=== PATIENT | male | born 1950 | race African-American/Black ===

== ENCOUNTER 2017-07-13 06:54 | Inpatient (IN) | payer MEDICARE ==
[2017-07-13] MEDS ORDERED: Dexmedetomidine 200 MCG/2 ML VIAL ONE (08:11)
[2017-07-13] MEDS ORDERED: Midazolam HCl 5 mg/5 ml Vial ONE (08:11)
[2017-07-13] MEDS ORDERED: Norepinephrine 8 MG/0.9% NS 250 ML ONE (08:11)
[2017-07-13] MEDS ORDERED: Fentanyl 250 MCG/5 ML VIAL ONE (08:11)
[2017-07-13] MEDS ORDERED: Midazolam HCl 2 mg/2 ml Vial ONE ×3 (08:11→11:38)
[2017-07-13] MEDS ORDERED: Heparin 10,000 UNITS/1 ML VIAL 30,000 UNITS in Sodium Chloride 0.9% 1,000 ML FS SCH (08:45)
[2017-07-13] MEDS ORDERED: Milrinone 10 MG/10 ML VIAL ONE (08:46)
[2017-07-13 08:47] LABS: #Basophils 0.1 thou/uL (0.0-0.2); #Eosinphils 0.3 thou/uL (0.0-0.7); #Lymphocytes 2.2 thou/uL (1.20-3.40); #Monocytes 0.4 thou/uL (0.11-0.59); #Neutrophils 2.3 thou/uL (1.40-6.50); %Basophils 1.2 % (0.0-1.0); %Eosinophils 5.5 % (0.0-10.0); %Monocytes 7.7 % (0.0-10.0); Hematocrit 46.7 % (42.0-52.0); Red Blood Cell (RBC) Count 5.94 mill/uL (4.70-6.10); White Blood Cell (WBC) Count 5.3 thou/uL (4.8-10.8)
[2017-07-13 09:05] LABS: Anion Gap 15 mmol/L (10-20); BUN (Urea Nitrogen) 14 mg/dL (8.4-25.7); Calc. Creatinine Clearance 124 mL/min (70-130); Carbon Dioxide 20 mmol/L (23-31); Chloride 107 mmol/L (98-107); Estimated GFR-MDRD Greater than 90
--- NOTE | 2017-07-13 09:08 | RAD ---
PA AND LATERAL CHEST: Indication: Pre-operative. Comparison: None. FINDINGS: The lungs are clear. Cardiomediastinal silhouette is within normal limits. There are changes involvin g the mid thoracic spine. No acute osseous abnormalities evident. IMPRESSION: No acute cardiopulmonary process. POS: [facility]
[2017-07-13] MEDS ORDERED: CEFAZOLIN/Water 2 GM/20 ML SYRINGE ONE (09:14)
[2017-07-13] MEDS ORDERED: Propofol 200 MG/20 ML VIAL ONE (09:48)
[2017-07-13] MEDS ORDERED: Lidocaine 2% MPF 10 ML AMP (For Epidural Use) ONE (09:48)
[2017-07-13] MEDS ORDERED: Vecuronium 10 MG VIAL ONE (09:48)
[2017-07-13] MEDS ORDERED: Fentanyl 100 MCG/2 ML VIAL ONE (11:38)
[2017-07-13] MEDS ORDERED: PHENYLEPHRINE-NS 100 MCG/ML 10 ML SYRINGE ONE (11:38)
[2017-07-13] MEDS ORDERED: FLU VACC TS2017-18 (>65YR) 0.5 ML SYRINGE IM ONE (12:15)
[2017-07-13] MEDS ORDERED: hydrALAZINE 20 MG/ML VIAL SLOW IVP PRN (13:37)
[2017-07-13] MEDS ORDERED: Guaifenesin DM 100-10/5 ML UDCUP PO PRN (13:37)
[2017-07-13] MEDS ORDERED: DOPamine 400 MG/D5W 250 ML 250 ML IVPB PRN (13:37)
[2017-07-13] MEDS ORDERED: Phenylephrine 10 MG/NS 250 ML 250 ML IVPB PRN (13:37)
[2017-07-13] MEDS ORDERED: Fentanyl 100 MCG/2 ML VIAL SLOW IVP PRN (13:37)
[2017-07-13] MEDS ORDERED: Ondansetron HCl/PF 4 MG/2 ML Vial IVP PRN (13:37)
[2017-07-13] MEDS ORDERED: HYDROcodone/Acetaminophen 5/325 mg Tablet PO PRN (13:37)
[2017-07-13] MEDS ORDERED: Norepinephrine 8 MG/0.9% NS 250 ML IVPB PRN (13:37)
[2017-07-13] MEDS ORDERED: Post-Op Insulin Drip Protocol IVPB ONE (13:37)
[2017-07-13] MEDS ORDERED: Morphine 4 MG/ML Carpuject SLOW IVP PRN (13:37)
[2017-07-13] MEDS ORDERED: Potassium Chloride 20 MEQ/100 ML PREMIX BAG IVPB PRN (13:37)
[2017-07-13] MEDS ORDERED: Mag-Al 1200 mg/1200 mg/30 ML UDCUP PO PRN (13:37)
[2017-07-13] MEDS ORDERED: niCARdipine HCl 25 MG in Sodium Chloride 0.9% 250 ML 240 ML IVPB PRN (13:37)
[2017-07-13] MEDS ORDERED: Bisacodyl 5 MG TAB PO PRN (13:37)
[2017-07-13] MEDS ORDERED: Bisacodyl 10 MG SUPP PR PRN (13:37)
[2017-07-13] MEDS ORDERED: Promethazine HCl 25 MG/ML VIAL IM PRN (13:37)
[2017-07-13] MEDS ORDERED: Acetaminophen 325 MG TAB PO PRN (13:37)
[2017-07-13] MEDS ORDERED: Nitroglycerin 50 MG/250 ML BOT 250 ML IVPB PRN (13:37)
[2017-07-13] MEDS ORDERED: Dextrose 50% Abboject 50 ML SYRINGE SLOW IVP PRN (13:47)
[2017-07-13] MEDS ORDERED: Dextrose 5% in Water 1,000 ML IV PRN (13:47)
[2017-07-13 14:05] LABS: #Basophils 0.1 thou/uL (0.0-0.2); #Eosinphils 0.2 thou/uL (0.0-0.7); #Lymphocytes 2.3 thou/uL (1.20-3.40); #Monocytes 0.8 thou/uL (0.11-0.59); #Neutrophils 12.7 thou/uL (1.40-6.50); %Basophils 0.3 % (0.0-1.0); %Eosinophils 1.4 % (0.0-10.0); %Lymphocytes 14.4 % (21.0-51.0); %Monocytes 4.9 % (0.0-10.0); Hematocrit 40.4 % (42.0-52.0); Mean Platelet Volume 10.8 fL (7.4-10.4); Red Blood Cell (RBC) Count 5.11 mill/uL (4.70-6.10); White Blood Cell (WBC) Count 16.1 thou/uL (4.8-10.8)
[2017-07-13 14:14] LABS: Prothrombin Time 16.9 SEC (12.0-14.7)
[2017-07-13 14:18] LABS: Oxyhemoglobin 95.1 % (94.0-97.0); Sodium 140 mmol/L (135-148)
[2017-07-13 14:19] LABS: Mechanical Tidal Volume 600 ml; Mode SIMV.PSV; Modified Allen's Test NOT DONE; Pressure Support 10 cmH2O; Vent YES
[2017-07-13 14:32] LABS: Anion Gap 14 mmol/L (10-20); BUN (Urea Nitrogen) 12 mg/dL (8.4-25.7); Calc. Creatinine Clearance 134 mL/min (70-130); Carbon Dioxide 20 mmol/L (23-31); Chloride 109 mmol/L (98-107); Estimated GFR-MDRD Greater than 90
[2017-07-13] MEDS: Insulin Regular 300 UNITS/3 ML VIAL SC PRN ×3 (14:42→21:52)
[2017-07-13] MEDS: Sodium Chloride 0.9% 1,000 ML IV SCH (14:48)
--- NOTE | 2017-07-13 15:51 | OP ---
DATE OF PROCEDURE: 07/13/2017 PREOPERATIVE DIAGNOSIS: Left main coronary artery disease with severe reduction in left ventricular function. POSTOPERATIVE DIAGNOSIS: Left main coronary artery disease with severe reduction in left ventricular function. SURGEON: Shubham Saunders M.D. BUSINESS MGR: Babar Thomas M.D. SPONGE AND NEEDLE COUNTS: Correct. ANESTHESIA: General. OPERATION PERFORMED: Coronary artery bypass grafting x3 with left internal mammary artery to LAD, reversed greater saphenous vein to diagonal, and reversed greater saphenous vein to OM. FINDINGS AT OPERATION: Cardiomegaly with no obvious LV scarring. At the sites of distal anastomosis the LAD was 2 mm, the diagonal 1.5-1.75 mm, and the OM 2 mm. Left internal mammary artery and utilized greater saphenous vein were good conduits. DESCRIPTION OF OPERATION: The patient was taken to the operating room. Following the induction of general endotracheal anesthesia, the patient was prepped and draped in the usual sterile fashion. Intraoperative KEN at this time demonstrated an ejection fraction of 20%. Sternotomy was performed. Left internal mammary artery was dissected in extrapleural fashion. Simultaneously, the left thigh greater saphenous vein was harvested using the endoscopic technique. Heparin dose was given and following assurance of an adequate ACT, the patient was cannulated in standard fashion. Cardiopulmonary bypass was instituted. Locations of distal anastomosis were marked. Padded cross-clamp was applied with a single application and a single dose of cold blood cardioplegia given antegrade. The first vein graft was anastomosed in end-to- side fashion to the OM using a continuous 7-0 Prolene suture. In similar fashion, the second vein graft was established to the diagonal. Left internal mammary artery was anastomosed in end-to-side fashion to the LAD using a continuous 7-0 Prolene suture. Mammary artery pedicle was tacked to the epicardium using 6-0 Prolene sutures. Systemic rewarming had been begun. With the head down and gentle suction on the aortic vent, the aortic cross-clamp was removed. Cardioversion was not required. Partial clamp was placed on the ascending aorta with a single application and the 2 proximal vein graft anastomoses performed to punch holes using continuous 6-0 Prolene sutures. Partial clamp was removed and vein grafts deaired. Following a Primacor load, the patient was weaned from cardiopulmonary bypass without difficulty and following heparin reversal with Protamine, the patient was decannulated. Amicar had been used in standard fashion through the case. No intraoperative blood products were required. Pericardium was not closed. Edward drains were positioned within the pericardial well and left pleural cavity. Sternum was reapproximated with interrupted #7 stainless steel wires. Linea alba and fascia were closed with running #1 Vicryl sutures followed by closure of the subcutaneous tissues with a running 2-0 Vicryl suture. Skin was closed with a 3 -0 Vicryl subcuticular stitch. Prior to closure, vancomycin paste had been applied to the sternal halves. Platelet-enriched and platelet-poor plasma had also been applied to the sternal wound. The patient was taken to the ICU. GLORIA
--- NOTE | 2017-07-13 16:16 | RAD ---
EXAM: CHEST ONE VIEW 07/13/17 HISTORY: Recent open heart surgery. COMPARISON: 07/13/17 at 9:16 a.m. FINDINGS: Portable supine chest demonstrates endotracheal tube at the level of the clavicles. Right sided centr al venous catheter terminates over the region of the right atrium. Left sided chest tube and a medias tinal venous catheter identified. Sternotomy wires are also noted. Heart is enlarged. Lung volumes ar e diminished. Interstitial and alveolar opacities due to edema or infiltrate are suspected. Pneumotho rax is not appreciated. IMPRESSION: Findings compatible with recent open heart surgery. POS: [facility]
[2017-07-13] MEDS: CEFAZOLIN/Water 2 GM/20 ML SYRINGE SLOW IVP SCH (16:35)
[2017-07-13 17:29] LABS: Oxyhemoglobin 96.2 % (94.0-97.0); Sodium 140 mmol/L (135-148)
[2017-07-13 17:30] LABS: Modified Allen's Test NOT DONE; Pressure Support 5 cmH2O; Vent YES
[2017-07-13 17:31] LABS: Mode PSV
[2017-07-13] MEDS: Ketorolac Tromethamine 30 MG/ML VIAL IVP SCH ×2 (17:32→23:56)
[2017-07-13] MEDS: Fentanyl 100 MCG/2 ML VIAL SLOW IVP PRN (19:47)
[2017-07-13 19:56] LABS: Hematocrit 42.7 % (42.0-52.0)
--- NOTE | 2017-07-13 20:42 | CON ---
DATE OF SERVICE: 07/13/2017 TYPE OF CONSULTATION: Cardiology Consultation. REASON FOR CONSULTATION: Status post bypass. HISTORY OF PRESENT ILLNESS: Mr. Mendoza is a pleasant 67-year-old -[place] gentleman well k nown to myself, who comes to the hospital for planned bypass grafting. He was seen originally in my office on 05/12/2017 at which point he was complaining of shortness of breath. The stress test and echo were done that showed reduced LV function with ischemia, so heart catheterization was performe d that showed severe left main disease. He underwent coronary artery bypass grafting x3 earlier to[place] by Dr. Saunders. He had a SPARROW to the LAD, a vein to the diagonal and a vein to an OM. He did wel l. On my evaluation, he has been extubated. He is doing well. His EF preoperatively on KEN was ab out 20-25%. His only complaint is just soreness. PAST MEDICAL HISTORY: 1. Ischemic cardiomyopathy as above. 2. Hypertension. 3. Hyperlipidemia. FAMILY HISTORY: Maternal grandfather of heart disease. Maternal grandmother of heart dis ease as well. SOCIAL HISTORY: Single with children, never a smoker. No alcohol or drugs. OUTPATIENT MEDICATIONS: Include: 1. Aspirin 81 daily. 2. Coreg 3.125 mg b.i.d. 3. Lisinopril 10 mg a day. 4. Sublingual nitro p.r.n. 5. Lipitor 40 mg p.o. daily. REVIEW OF SYSTEMS: A 12-point review of systems was done and is all negative unless stated in the h istory of present illness. PHYSICAL EXAMINATION: VITAL SIGNS: Temperature 98.1, pulse 70, respiration rate 18, satting 97% on 2 liters, blood pressu re 101/52. GENERAL: Awake, alert and oriented x3, in no distress. HEENT: Normocephalic, atraumatic. NECK: Supple. LUNGS: Have mild crackles. CARDIOVASCULAR: S1, S2. There is a 2 component rub consistent with recent bypass history. ABDOMEN: Soft, positive bowel sounds. EXTREMITIES: Trace edema. SKIN: Warm and dry. LABORATORY WORK: Reviewed. White count of 5, hemoglobin 14 down to 12.8 after surgery, platelet co unt of 175. Coags were reviewed. ABGs were reviewed. Chemistries were reviewed. BUN of 12, creat inine 0.81, calcium of 8. Chest x-ray after surgery showed compatible recent open heart surgery, no major changes. ASSESSMENT: 1. Ischemic cardiomyopathy. 2. Left main coronary artery disease. 3. Status post coronary bypass grafting x3 as above. 4. Hypertension. 5. Hyperlipidemia. PLAN: 1. Continue postoperative care. 2. Continue supportive care for now. 3. Aspirin and statin for life. 4. We will restart beta chavo and KATELYN inhibitor as blood pressure allows in the next few days. 5. When he is discharged, he will require continuation of his LifeVest use. Thank you for letting us to participate in the care of your patient. We will follow.
[2017-07-13] MEDS: Famotidine/PF 20 mg/2ml Vial SLOW IVP SCH (21:52)
[2017-07-14] MEDS: CEFAZOLIN/Water 2 GM/20 ML SYRINGE SLOW IVP SCH ×2 (00:32→09:08)
[2017-07-14 00:46] VITALS: BMI 32.3
[2017-07-14] MEDS: Fentanyl 100 MCG/2 ML VIAL SLOW IVP PRN (02:53)
[2017-07-14 04:42] LABS: #Lymphocytes 1.8 thou/uL (1.20-3.40); #Monocytes 0.9 thou/uL (0.11-0.59); #Neutrophils 10.4 thou/uL (1.40-6.50); %Basophils 0.2 % (0.0-1.0); %Eosinophils 0.1 % (0.0-10.0); %Lymphocytes 13.6 % (21.0-51.0); %Monocytes 7.2 % (0.0-10.0); Mean Platelet Volume 10.7 fL (7.4-10.4); Red Blood Cell (RBC) Count 5.04 mill/uL (4.70-6.10); White Blood Cell (WBC) Count 13.1 thou/uL (4.8-10.8)
[2017-07-14 04:52] LABS: Anion Gap 12 mmol/L (10-20); BUN (Urea Nitrogen) 16 mg/dL (8.4-25.7); Calc. Creatinine Clearance 132 mL/min (70-130); Calcium 8.3 mg/dL (7.8-10.44); Carbon Dioxide 22 mmol/L (23-31); Chloride 107 mmol/L (98-107); Estimated GFR-MDRD Greater than 90
[2017-07-14] MEDS: Ketorolac Tromethamine 30 MG/ML VIAL IVP SCH ×4 (06:31→23:08)
[2017-07-14] MEDS: HYDROcodone/Acetaminophen 5/325 mg Tablet PO PRN ×4 (07:43→23:12)
[2017-07-14] MEDS: Atorvastatin Calcium 20 MG TAB PO SCH (07:46)
[2017-07-14] MEDS: Famotidine/PF 20 mg/2ml Vial SLOW IVP SCH (07:47)
--- NOTE | 2017-07-14 08:15 | RAD ---
PORTABLE AP CHEST: Date: 07-14-17 History: Post open heart surgery. FINDINGS: Left subclavian central venous catheter is noted in place with tip overlying the right atrium. Media stinal drain and left sided thoracotomy tube are noted in place. There is volume loss at each lung b ase. Cardiac silhouette is magnified by projection but does appear mildly enlarged. Pulmonary vascul ature is within normal limits. Post-surgical change related to CABG are noted. Osseous structures ar e intact. IMPRESSION: 1. Post-surgical changes related to CABG. Lines and tubes are in place as described above. No pneumo thorax is seen. 2. Bibasilar atelectasis. POS: [facility]
[2017-07-14] MEDS ORDERED: Aspirin 325 MG TAB PO SCH (09:00)
[2017-07-14] MEDS: Allopurinol 300 MG TAB PO SCH (09:07)
[2017-07-14 12:51] LABS: Oxyhemoglobin 97.8 % (94.0-97.0); Sodium 140 mmol/L (135-148)
[2017-07-14 12:52] LABS: Oxyhemoglobin 97.7 % (94.0-97.0); Sodium 139 mmol/L (135-148)
[2017-07-14 12:52] LABS: Oxyhemoglobin 97.7 % (94.0-97.0); Sodium 138 mmol/L (135-148)
[2017-07-14 12:53] LABS: Oxyhemoglobin 97.8 % (94.0-97.0); Sodium 137 mmol/L (135-148)
[2017-07-14 12:53] LABS: Base Excess -1.9 mEq/L (0 (+/- 2.5)); O2 Content (venous) 9.3 VOL% (12.5-17.5); pH (venous) 7.333 (7.35-7.45)
[2017-07-14 13:17] LABS: Mode OR ABG; Vent YES
[2017-07-14 13:17] LABS: Mode OR ABG; Vent YES
[2017-07-14 13:18] LABS: Mode OR ABG; Vent YES
[2017-07-14 13:18] LABS: Vent YES
[2017-07-14 13:19] LABS: Mode OR ABG
[2017-07-14] MEDS ORDERED: Furosemide 40 MG/4 ML VIAL SLOW IVP SCH (14:00)
--- NOTE | 2017-07-14 14:29 | CON ---
DATE OF CONSULTATION: 07/14/2017 SERVICE: Pulmonary Medicine. REASON FOR CONSULTATION: Rather ICU patient. HISTORY OF PRESENT ILLNESS: The patient is a 67-year-old -[place] male with past medical hi story significant for hypertension and ischemic cardiomyopathy. He presented for an elective alexander ry bypass graft from the outpatient setting. He was in his usual state of health, going into the [facility]. He has no underlying respiratory issues. He denies any current fevers, chills, nausea, vomi ting, diarrhea or chest discomfort. He extubated comfortably yesterday without any significant issu es. Otherwise, he is returning to his usual state of health. His pain is under decent control, but he is splinting a little bit, not taking full breath with respirations. PAST MEDICAL HISTORY: 1. Coronary artery disease. 2. Chronic systolic heart failure. 3. Hypertension. 4. Dyslipidemia. PAST SURGICAL HISTORY: Coronary artery bypass graft. SOCIAL HISTORY: He is a lifelong nonsmoker. He denies any alcohol or illicit drug use. No exposur e to chemicals, dust asbestos or tuberculosis. FAMILY HISTORY: Heart disease runs in primary family members. ALLERGIES: No known drug allergies. MEDICATIONS: List of his inpatient medications were reviewed. No specific updates were made at thi s time. PHYSICAL EXAMINATION: VITAL SIGNS: Afebrile, pulse 82, blood pressure 110/63, respirations 18, saturation 100% on 2 liter s nasal cannula. LUNGS: Excellent air entry with no prolonged expiratory phase, wheezing, rhonchi or crackles. CARDIOVASCULAR: Normal rate, regular. ABDOMEN: Soft, nontender, nondistended, bowel sounds positive. MUSCULOSKELETAL: No cyanosis or clubbing. No pitting in the bilateral lower extremities. NEUROLOGIC: Grossly nonfocal. LABORATORY DATA: WBC 13.1, hemoglobin 12.7, platelets 158,000. INR 1.3, pH 7.37, pCO2 of 33, pO2 1 11 on 40% FIO2. Basic metabolic profile is essentially unremarkable. Blood sugars ranged 103-141. IMAGING: Chest x-ray demonstrated post-surgical changes associated with coronary bypass graft. Bib asilar atelectasis is present. ASSESSMENT: 1. Coronary artery disease, status post coronary artery bypass graft, postoperative day #1. 2. Hypertension. 3. Dyslipidemia. 4. Coronary artery disease. 5. Chronic systolic heart failure with 30% ejection fraction. PLAN: We will continue her postop supportive care. I will continue to follow along while the radha slater remains in this location.
[2017-07-14] MEDS ORDERED: Bisacodyl 10 MG SUPP PR PRN (16:33)
[2017-07-14] MEDS ORDERED: Bisacodyl 5 MG TAB PO PRN (16:33)
[2017-07-14] MEDS ORDERED: Guaifenesin DM 100-10/5 ML UDCUP PO PRN (16:33)
[2017-07-14] MEDS ORDERED: Mag-Al 1200 mg/1200 mg/30 ML UDCUP PO PRN (16:33)
[2017-07-14] MEDS ORDERED: Artificial Tears 18 DROP/0.9 ML EA EYE PRN (16:33)
[2017-07-14] MEDS ORDERED: Zolpidem Tartrate 5 MG TAB PO PRN (16:33)
[2017-07-14] MEDS ORDERED: Nitroglycerin 0.4 MG TAB (25 Tab Bottle) SL PRN (16:33)
[2017-07-14] MEDS ORDERED: Promethazine HCl 25 MG/ML VIAL IM PRN (16:33)
[2017-07-14] MEDS ORDERED: Fentanyl 100 MCG/2 ML VIAL SLOW IVP PRN ×2 (16:33)
[2017-07-14] MEDS ORDERED: Milk Of Magnesia 30 ML UDCUP PO PRN (16:33)
[2017-07-14] MEDS ORDERED: Ondansetron HCl/PF 4 MG/2 ML Vial IVP PRN (16:33)
[2017-07-14] MEDS ORDERED: diphenhydrAMINE 25 MG CAP PO PRN (16:33)
[2017-07-14] MEDS ORDERED: Acetaminophen 325 MG TAB PO PRN (16:33)
[2017-07-14] MEDS ORDERED: Mineral Oil ENEMA PR PRN (16:33)
[2017-07-14] MEDS: Carvedilol 3.125 MG TAB PO SCH (17:54)
--- NOTE | 2017-07-14 18:11 | PDOC.CTH ---
Cardiology Progress Note - Subjective He is doing better. Less sore. No other issues. - Objective Vital Signs Temp Pulse Resp Pulse Ox 07/14/17 16:00 98.0 F 95 07/14/17 14:39 99 07/14/17 12:00 97.9 F 97 07/14/17 08:00 99.5 F 07/14/17 07:45 99.5 F 80 18 98 Weight 244 lb 7.882 oz 07/13/17 07/14/17 07/15/17 06:59 06:59 06:59 Intake Total 1371 795 Output Total 1345 1125 Balance 26 -330 - Physical Examination General/Neuro: alert & oriented x3, NAD Neck: no JVD present Lungs: unlabored respirations Heart: RRR Abdomen: NT/ND Extremities: + edema B (1+) - Telemetry Telemetry Rhythm: NSR - Labs Result Diagrams: 07/14/17 04:10 07/14/17 04:10 - Assessment/Plan 1. Severe LM disease. 2. S/P CABG 3. Severe ischemic CM EF at 30-35% 4. HTN. 5. HLP. PLAN: - Continue post op care. - Aspirin and statin for life. - Agree with starting coreg. - Start ACEI low dose tomorrow if BP allows.
[2017-07-14] MEDS: Sodium Chloride 0.9% 1,000 ML IV SCH (19:45)
[2017-07-14] MEDS: Famotidine 20 MG TAB PO SCH (20:32)
[2017-07-15] MEDS: Ketorolac Tromethamine 30 MG/ML VIAL IVP SCH ×4 (05:24→23:58)
[2017-07-15] MEDS: Potassium Chloride 20 MEQ TAB PO SCH (08:44)
[2017-07-15] MEDS: Carvedilol 3.125 MG TAB PO SCH ×2 (08:44→20:04)
[2017-07-15] MEDS: Furosemide 40 MG TAB PO SCH (08:45)
[2017-07-15] MEDS: Aspirin 325 mg Enteric Coated Tablet PO SCH (08:45)
[2017-07-15] MEDS: Atorvastatin Calcium 20 MG TAB PO SCH (08:45)
[2017-07-15] MEDS: Famotidine 20 MG TAB PO SCH ×2 (08:45→20:04)
[2017-07-15] MEDS: Allopurinol 300 MG TAB PO SCH (09:09)
[2017-07-15] MEDS: HYDROcodone/Acetaminophen 5/325 mg Tablet PO PRN ×2 (11:21→17:25)
--- NOTE | 2017-07-15 15:12 | PDOC.CTH ---
Cardiology Progress Note - Subjective He is doing better. He has been walking around the halls and feeling well. he had a BM earlier today. - Objective Vital Signs Temp Pulse Pulse Pulse Resp BP BP 07/15/17 11:43 98.5 F 95 16 07/15/17 11:14 98.5 F 95 16 07/15/17 09:26 92 95 139/67 144/67 H 07/15/17 08:00 99 F 97 16 07/15/17 04:10 07/15/17 03:55 98.6 F BP Pulse Ox Pulse Ox Pulse Ox 07/15/17 11:43 96 07/15/17 11:14 132/77 96 07/15/17 09:26 94 L 100 07/15/17 08:00 94 L 07/15/17 04:10 99 07/15/17 03:55 Weight 247 lb 2.211 oz 07/14/17 07/15/17 07/16/17 06:59 06:59 06:59 Intake Total 1371 1555 200 Output Total 1345 1665 0 Balance 26 -110 200 - Physical Examination General/Neuro: alert & oriented x3, NAD Neck: no JVD present Lungs: unlabored respirations Heart: RRR Abdomen: NT/ND Extremities: + edema B (1+) - Telemetry Telemetry Rhythm: NSR - Labs Result Diagrams: 07/14/17 04:10 07/14/17 04:10 - Assessment/Plan 1. Severe LM disease. 2. S/P CABG 3. Severe ischemic CM EF at 30-35% 4. HTN. 5. HLP. PLAN: - Continue post op care. - Aspirin and statin for life. - Agree with starting coreg. - Start ACEI low dose tomorrow. - Will need lifevest before discharge. He already has one at home but may need re fitting as he states it is too tight now that he has had surgery.
--- NOTE | 2017-07-15 16:19 | PRG ---
DATE OF SERVICE: 07/15/2017 SERVICE: Pulmonary Medicine. INTERVAL HISTORY: The patient is doing outstanding from a respiratory standpoint. He denies any ch est discomfort presently. His breathing is much improved. The chest tube was removed yesterday victor hugo murrieta. He has increasing mobility as tolerated. PHYSICAL EXAMINATION: VITAL SIGNS: Afebrile. Pulse 92, blood pressure 128/66, respirations 14, saturation 96% on room ai r. GENERAL: The patient is awake and alert, in no apparent distress. LUNGS: Excellent air entry with no prolonged expiratory phase. No wheezing, rhonchi or crackles. HEART: Normal rate and regular. ABDOMEN: Soft, nontender, nondistended. Bowel sounds positive. MUSCULOSKELETAL: No cyanosis or clubbing. No pitting in the bilateral lower extremities. NEUROLOGIC: Grossly nonfocal. ASSESSMENT 1. Coronary artery disease, status post coronary artery bypass graft, postoperative day #2. 2. Hypertension. 3. Coronary artery disease. 4. Chronic systolic heart failure with 30% ejection fraction. PLAN: Routine postop supportive care will be continued. I will continue to follow along for at [facility] one additional day. He is being transitioned to a telemetry unit as soon as room becomes availab Dilia
[2017-07-16] MEDS: Ketorolac Tromethamine 30 MG/ML VIAL IVP SCH ×3 (05:19→17:29)
[2017-07-16] MEDS: Carvedilol 3.125 MG TAB PO SCH (08:32)
[2017-07-16] MEDS: Potassium Chloride 20 MEQ TAB PO SCH (08:32)
[2017-07-16] MEDS: Furosemide 40 MG TAB PO SCH (08:33)
[2017-07-16] MEDS: HYDROcodone/Acetaminophen 5/325 mg Tablet PO PRN ×2 (08:33→17:29)
[2017-07-16] MEDS: Aspirin 325 mg Enteric Coated Tablet PO SCH (08:34)
[2017-07-16] MEDS: Lisinopril 2.5 MG TAB PO SCH (08:34)
[2017-07-16] MEDS: Atorvastatin Calcium 20 MG TAB PO SCH (08:35)
[2017-07-16] MEDS: Allopurinol 300 MG TAB PO SCH (08:35)
[2017-07-16] MEDS: Famotidine 20 MG TAB PO SCH ×2 (08:35→20:26)
[2017-07-16] MEDS ORDERED: Metolazone 5 MG TAB PO SCH (08:45)
--- NOTE | 2017-07-16 13:49 | PDOC.CTH ---
Cardiology Progress Note - Subjective No new issues. He has been walking around with PT an don his own. When walking he gets tachycardic and has several PVC's even in bigeminy. - Objective Vital Signs Temp Pulse Pulse Pulse Resp BP BP 07/16/17 11:26 98.2 F 93 18 07/16/17 08:48 99 93 185/86 H 07/16/17 08:34 86 139/76 07/16/17 08:00 97.8 F 86 18 07/16/17 07:40 98.8 F 86 18 07/16/17 04:00 98.4 F 86 16 BP BP Pulse Ox Pulse Ox Pulse Ox 07/16/17 11:26 134/67 96 07/16/17 08:48 161/78 H 96 96 07/16/17 08:34 07/16/17 08:00 98 07/16/17 07:40 139/76 98 07/16/17 04:00 137/71 95 Weight 250 lb 07/15/17 07/16/17 07/17/17 06:59 06:59 06:59 Intake Total 1555 1280 Output Total 1665 2290 Balance -110 -1010 - Physical Examination General/Neuro: alert & oriented x3, NAD Neck: no JVD present Lungs: CTA, unlabored respirations Heart: RRR Abdomen: NT/ND Extremities: + edema B (trace) - Telemetry Telemetry Rhythm: NSR, PVC's, LBBB. - Labs Result Diagrams: 07/14/17 04:10 07/14/17 04:10 - Assessment/Plan 1. Severe LM disease. 2. S/P CABG 3. Severe ischemic CM EF at 30-35% 4. HTN. 5. HLP. PLAN: - Aspirin and statin for life. - Continue low dose BB and ACEI. . - Lifevest will be refitted before discharge.
--- NOTE | 2017-07-16 19:30 | PRG ---
DATE OF SERVICE: 07/16/2017 SERVICE: Pulmonary Medicine. INTERVAL HISTORY: The patient is doing great from a respiratory standpoint. He has been up walking the hallways without difficulty. He has no chest discomfort. Otherwise, he is returning to his [facility] state of health if not better. PHYSICAL EXAMINATION: VITAL SIGNS: Afebrile, pulse 92, blood pressure 123/78, respirations 16, saturation 95% on room air . GENERAL: The patient is awake and alert, in no apparent distress. LUNGS: Excellent air entry with no prolonged expiratory phase. No wheezing, rhonchi, or crackles. HEART: Normal rate, regular. ABDOMEN: Soft, nontender, nondistended. Bowel sounds positive. MUSCULOSKELETAL: No cyanosis or clubbing. There is no pitting in the bilateral lower extremities. NEUROLOGIC: Grossly nonfocal. ASSESSMENT: 1. Coronary artery disease, status post coronary artery bypass graft, postoperative day #3. 2. Hypertension. 3. Coronary artery disease. 4. Chronic systolic heart failure with 30% ejection fraction. PLAN: Routine postoperative care will be continued. At this point, there is no further requirement for inpatient Pulmonary or Critical care opinion. As such, we will sign off. Please call with add itional questions or concerns.
[2017-07-16] MEDS: Carvedilol 6.25 MG TAB PO SCH (20:27)
[2017-07-17] MEDS: Potassium Chloride 20 MEQ TAB PO SCH (09:58)
[2017-07-17] MEDS: Atorvastatin Calcium 20 MG TAB PO SCH (09:58)
[2017-07-17] MEDS: Carvedilol 6.25 MG TAB PO SCH (09:59)
[2017-07-17] MEDS: Furosemide 40 MG TAB PO SCH (09:59)
[2017-07-17] MEDS: Aspirin 325 mg Enteric Coated Tablet PO SCH (09:59)
[2017-07-17] MEDS: Allopurinol 300 MG TAB PO SCH (09:59)
[2017-07-17] MEDS: Famotidine 20 MG TAB PO SCH (09:59)
[2017-07-17] MEDS: Lisinopril 2.5 MG TAB PO SCH (09:59)
[2017-07-17] MEDS: HYDROcodone/Acetaminophen 5/325 mg Tablet PO PRN (10:03)
--- NOTE | 2017-07-17 12:56 | PDOC.CTH ---
Cardiology Progress Note - Subjective The pt was seen and examined. No overnight events. No cardiac complaints. His home LifeVest is at bedside. - Objective Vital Signs Temp Pulse Pulse Pulse Resp BP BP 07/17/17 09:59 87 142/79 H 07/17/17 09:02 95 90 147/81 H 07/17/17 07:20 97.1 F L 87 18 07/17/17 04:00 98.2 F 88 20 BP BP BP Pulse Ox Pulse Ox Pulse Ox 07/17/17 09:59 07/17/17 09:02 120/67 100 95 07/17/17 07:20 142/79 H 95 07/17/17 04:00 120/64 94 L Weight 248 lb 07/16/17 07/17/17 07/18/17 06:59 06:59 06:59 Intake Total 1280 1960 Output Total 2290 2720 Balance -1010 -760 - Physical Examination General/Neuro: alert & oriented x3 Neck: no JVD present Lungs: CTA Heart: RRR Abdomen: soft Extremities: other: Other PE findings: 1+ pitting edema in BLE; MSI and Lt saph BAMBI and dry - Telemetry Telemetry Rhythm: SR with LBBB 80s - Labs Result Diagrams: 07/14/17 04:10 07/14/17 04:10 - Assessment/Plan 1. CAD with s.p CABG x3 on 07/13/17 - Stable with current medication; Instructed to wear compression stocking at home 2. Severe ischemic CM EF at 30-35% - Cont. wearing LifeVest 3. HTN - stable with current medication 4. Hyperlipidemia - on Lipitor MAR reviewed *The pt will d/c home with ASA 325mg, Lipitor, Coreg 12.5mg BID, Lasix 40mg dailyand Lisinopril * The pt will f/u with Dr Toure's office with 2-3wks Review of Systems - Review of Systems Constitutional: reports: no symptoms reported EENTM: reports: no symptoms reported Respiratory: reports: no symptoms reported Cardiac (ROS): reports: no symptoms reported ABD/GI: reports: no symptoms reported : reports: no symptoms reported Musculoskeletal: reports: no symptoms reported
[2017-07-17 13:23] VITALS: BP 118/64; TEMP 98.4
--- NOTE | 2017-07-17 17:00 | DIS ---
REASON FOR ADMISSION: Coronary artery bypass surgery. CLINICAL RESUME: Patient is a 67-year-old male with recent onset of exertional chest pain and shortness of breath. He had no prior history of NH. Workup culminated in cardiac catheterization, which demonstrated a 70% left main stenosis, 50% LAD stenosis, small nondominant RCA, and severe reduction in left ventricular function with ejection fraction of 30%. Patient was referred for coronary artery bypass surgery and on 07/13/2017 underwent coronary artery bypass grafting x3 with left internal mammary artery to LAD and separate reversed greater saphenous veins to the diagonal and OM. Intraoperative KEN revealed an ejection fraction of 20%. See operative report for further details. He received no blood products. His postoperative course has been unremarkable and as of today, he was considered stable for discharge. Follow up will be arranged in my office in 2 weeks or sooner p.r.n. 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 WOUND CARE: As instructed. ACTIVITY: Light with restrictions on driving and heavy lifting at this time. DIET: Cardiac, prudent. DISCHARGE MEDICATIONS: He is to resume his home allopurinol 300 mg q.a.m., lisinopril 10 mg daily, and Lipitor 20 mg daily. He is to increase his home Coreg from 3.125 mg b.i.d. to 12.5 mg b.i.d. He is to increase his home aspirin from 81 mg daily to 325 mg daily. NEW MEDICATION: [place] 5/325 mg one to two q.4-6 hours p.r.n. [facility]
--- NOTE | 2017-07-21 21:45 | EKG ---
Test Reason : PREOP Blood Pressure : / mmHG Vent. Rate : 064 BPM Atrial Rate : 064 BPM P-R Int : 178 ms QRS Dur : 160 ms QT Int : 468 ms P-R-T Axes : 064 070 -46 degrees QTc Int : 482 ms Normal sinus rhythm Left bundle branch block Abnormal ECG No previous ECGs available Confirmed by JESUS ALBERTO DURBIN (2) on 07/21/2017 9:45:09 PM Referred By: SHIRA Confirmed By:JESUS ALBERTO DURBIN
--- NOTE | 2017-07-21 21:48 | EKG ---
Test Reason : POSTCABG Blood Pressure : / mmHG Vent. Rate : 058 BPM Atrial Rate : 058 BPM P-R Int : 166 ms QRS Dur : 160 ms QT Int : 550 ms P-R-T Axes : 069 086 -27 degrees QTc Int : 539 ms Sinus bradycardia Left bundle branch block Abnormal ECG When compared with ECG of 13-JUL-2017 08:12, (Unconfirmed) QT has lengthened Confirmed by JESUS ALBERTO DURBIN (2) on 07/21/2017 9:48:08 PM Referred By: SHIRA Confirmed By:JESUS ALBERTO DURBIN
== END 2017-07-17 13:10 | disposition home or self-care (01) | DRG 236 ==
LOC: SURG A 06:54 → CCU 09:12 → 2NO 07-15 11:09
PROVIDERS: ADMIT Thoracic Surgery (Cardiothoracic Vascular Surgery); ATTEND Thoracic Surgery (Cardiothoracic Vascular Surgery)
PROC: 02100Z9 Bypass Coronary Artery, One Artery from Left Internal Mammary, Open Approach (ICD-10-PCS; principal; 2017-07-13)
PROC: 06BQ4ZZ Excision of Left Saphenous Vein, Percutaneous Endoscopic Approach (ICD-10-PCS; 2017-07-13)
PROC: 5A1221Z Performance of Cardiac Output, Continuous (ICD-10-PCS; 2017-07-13)
PROC: 02H633Z Insertion of Infusion Device into Right Atrium, Percutaneous Approach (ICD-10-PCS; 2017-07-13)
DX: I25.118 Atherosclerotic heart disease of native coronary artery with other forms of angina pectoris (principal); I11.0 Hypertensive heart disease with heart failure; I50.22 Chronic systolic (congestive) heart failure; E78.2 Mixed hyperlipidemia; I25.5 Ischemic cardiomyopathy; I44.7 Left bundle-branch block, unspecified
CPT/HCPCS: 36415; 36416; 36430; 71010; 71020; 80048; 82805; 85025; 85610; 85730; 86850; 86900; 86901; 93005; 93010; 93798; 94002; 94150; J1642; J1644; J1815; J1885; J1940; J2001; J2250; J2260; J2704; J3010; J7050; S0028